=== PATIENT | female | born 1965 | race Caucasian/White ===

== ENCOUNTER 2022-01-10 10:45 | Outpatient (CLI) | payer OTHER | END 2022-01-10 11:00 | disposition home or self-care (01) | LOC: MRI 10:45 | PROVIDERS: ATTEND Obstetrics & Gynecology Gynecologic Oncology | DX: C54.1 Malignant neoplasm of endometrium (principal) | CPT/HCPCS: 72197 ==

== ENCOUNTER 2022-04-15 11:45 | Inpatient (IN) | payer OTHER ==
[~2022-04-15] VITALS: Ht 157.5 cm; Wt 56.7 kg
[2022-04-15] MEDS ORDERED: JARDIANCE25 MG PO (13:07)
[2022-04-15] MEDS ORDERED: FENOFIBRATE50 MG PO (13:08)
[2022-04-15] MEDS ORDERED: GLIMEPIRIDE4 MG (13:08)
[2022-04-15] MEDS ORDERED: LIPITOR40 MG PO (13:08)
[2022-04-15] MEDS ORDERED: SYNTHROID50 MCG PO (13:09)
== END 2022-04-18 14:32 | disposition home or self-care (01) | DRG 741 ==
LOC: O/R 04-17 05:49 → OB/GYN 04-17 11:45 → SURH 04-17 21:50 → OB/GYN 04-17 22:30 → SURH 04-18 14:32
PROVIDERS: ADMIT Obstetrics & Gynecology Gynecologic Oncology; ATTEND Obstetrics & Gynecology Gynecologic Oncology
PROC: 0UT74ZZ Resection of Bilateral Fallopian Tubes, Percutaneous Endoscopic Approach (ICD-10-PCS; 2022-04-17)
PROC: 0UT24ZZ Resection of Bilateral Ovaries, Percutaneous Endoscopic Approach (ICD-10-PCS; 2022-04-17)
PROC: 07BC4ZZ Excision of Pelvis Lymphatic, Percutaneous Endoscopic Approach (ICD-10-PCS; 2022-04-17)
PROC: 0UT94ZZ Resection of Uterus, Percutaneous Endoscopic Approach (ICD-10-PCS; principal; 2022-04-17 22:30)
DX: C54.1 Malignant neoplasm of endometrium (principal); N72 Inflammatory disease of cervix uteri; D25.2 Subserosal leiomyoma of uterus; Z20.822 Contact with and (suspected) exposure to COVID-19